=== PATIENT | male | born 1955 | race Caucasian/White ===

== ENCOUNTER 2019-01-13 09:47 | Inpatient (IN) ==
[2019-01-13] MEDS ORDERED: VANCOMYCIN 1 GM/NS 1 GM/250 ML IVPB IV ONE (10:11)
[2019-01-13] MEDS ORDERED: CLINDAMYCIN 900 MG/NS 900 MG/50 ML IVPB IV ONE (10:11)
[2019-01-13] MEDS ORDERED: CLINDAMYCIN 900 MG/D5W 900 MG/50 ML IVPB IV ONE (11:00)
[2019-01-13] MEDS ORDERED: ATIVAN IM ONE (13:30)
[2019-01-13 15:18] LABS: BASO# 0.04 X1000 (0.0-0.2); BASO% 0.3 % (0.0-0.8); EOS# 0.79 X1000 (0.0-0.7); EOS% 5.5 % (0.0-10.0); HEMATOCRIT 36.3 % (42.0-52.0); IMM GRAN# 0.09 X1000 (0.0-0.04); IMM GRAN% 0.6 % (0.0-0.5); LYMPH% 5.5 % (20.5-51.1); MCHC 35.8 g/dL (33-37); MCV 89.4 FL (81-99); MONO# 0.99 X1000 (0.11-0.59); MONO% 6.9 % (1.7-9.3); MPV 8.2 FL (7.4-10.4); NEUT# 11.74 X1000 (1.4-6.5); NEUT% 81.2 % (42.2-75.2); PLT 434 X1000 (130-400); RBC 4.06 XMIL (4.7-6.1); RDW 13.7 % (11.5-14.5); WBC 14.45 X1000 (4.8-10.8)
[2019-01-13 15:29] LABS: PROTIME 13.3 Seconds (11.0-16.0)
[2019-01-13 15:46] LABS: AGAP 13; ALBUMIN 3.2 g/dL (3.5-5.0); ALKALINE PHOSPHATASE 133 U/L (32-122); BUN 11 mg/dL (8-22); CALCIUM 8.6 mg/dL (8.8-10.2); CHLORIDE 93 mmol/L (98-107); CK PROFILE 27 U/L (24-204); COSMO 265; CREATININE 0.5 mg/dL (0.7-1.2); ESTIMATED GFR > 60; GLUCOSE 112 mg/dL (70-104); GOT 12 U/L (10-34); GPT 20 U/L (10-44); POTASSIUM 3.3 mmol/L (3.5-5.1); SODIUM 132 mmol/L (136-145); TCO2 26 mmol/L (25-35); TOTAL BILIRUBIN 0.23 mg/dL (0.20-1.00); TOTAL PROTEIN 6.4 g/dL (6.3-8.3)
--- NOTE | 2019-01-13 15:55 | PROVIDER DOCUMENTATION ---
This chart was entered by Sonia Mendoza Scribe, acting as scribe for Annalise Whitaker MD. HPI-Rash/Wound/ReCheck - General Stated Complaint: LEFT TESTICULAR ABSCESS Time Seen by Provider: 01/13/19 09:55 Source: patient, family (daughter) Allergies/Adverse Reactions: Allergies Allergy/AdvReac Type Severity Reaction Status Date / Time codeine AdvReac ITCHING Verified 02/15/18 16:38 ibuprofen [From Motrin] AdvReac ITCHING Verified 02/15/18 16:38 Home Medications: Home Medication List Medication Instructions Recorded Confirmed Last Taken Type Amlodipine Besylate [Norvasc] 10 mg PO QAM 01/13/19 01/13/19 01/13/19 History 10 Diazepam [Valium] 5 mg PO 4XDAY 01/13/19 01/13/19 01/13/19 History 5 Docusate Sodium [Colace] 100 mg PO BID 01/13/19 01/13/19 01/13/19 History 100 - History of Present Illness-Dermatology Nature of Presenting Problem: 63 yowm presents to the ed with c/o abscess on posterior left testicle with packing in place and stage 3 pressure ulcer sacrum region. pt [facility] health nurse sent him to ed via ems . pt is a paraplegic for many years and is bed bound. pt on exam is nontoxic in appearance and is aggravated with any medical treatment and daughter at bedside Location: reports: genitalia, other (sacrum) Quality: reports: painful Severity: reports: moderate Onset/Duration: reports: gradual (worsen) Timing: reports: constant, getting worse Context/Associated Symptoms: reports: abscess, tender area, other (presszure ulcer) Identifiable cause?: Yes Locality of Occurance: Home Similar Symptoms Previously?: Yes (chronic) Recently seen or treated by another doctor?: Yes (sees home health and wound care) Review of Systems - Adult - REVIEW OF SYSTEMS - ADULT Constitutional: denies: chills, fever Eyes: reports: no symptoms reported Ears, Nose, Mouth & Throat: reports: no symptoms reported Cardiovascular: denies: chest pain, palpitations Respiratory: denies: cough, shortness of breath, wheezing Gastrointestinal: reports: no symptoms reported Genitourinary: reports: no symptoms reported Musculoskeletal: reports: no symptoms reported Integumentary: reports: see HPI, skin sores/ulcer Neurological: denies: dizziness/vertigo, headache/migraines Psychiatric: reports: no symptoms reported Endocrine: reports: no symptoms reported Hematologic/Lymphatic: reports: no symptoms reported Allergic/Immunologic: reports: no symptoms reported All Other Systems: Reviewed and Negative Past History - Adult - PAST MEDICAL HISTORY-ADULT Review of Records: reports: Old Records Reviewed, Nursing Assessment Review, Medications Reviewed, Social history reviewed & non-contributory. Major Childhood Illnesses: reports: denies history Cardiovascular: reports: HTN Respiratory: reports: denies history Gastrointestinal: reports: denies history Genitourinary: reports: chronic UTI's, other (jimenez cath) Musculoskeletal: reports: other (paralysis lower extremities) Neurological: reports: denies history Psychiatric: reports: denies history Endocrine/Immune: reports: denies history Other Conditions: reports: denies history - PRIOR SURGERIES/PROCEDURES Surgical/Procedure History: reports: tonsillectomy, bowel surgery, orthopedic (extremity), back/neck (paraplegic) - IMMUNIZATION STATUS Childhood Immunizations: See Nurse Assessment Flu Vaccine: See Nurse Assessment - FAMILY HISTORY Family History: reviewed, not pertinent - SOCIAL HISTORY Smoking: quit greater than 1 year Substance Use: none presently/history of abuse (sts stopped etoh last week) Alcohol Use Frequency: sober (former use) Living Situation: family (daughter) Physical Exam-General - PHYSICAL EXAM-ADULT Initial Vital Signs Reviewed: Yes - CONSTITUTIONAL General Appearance: appears well, alert, no apparent distress - EYES Eyes: PERRL/EOMI, pink conjunctivae - HEAD, EARS, NOSE, MOUTH & THROAT HENMT: moist mucous membranes - NECK Neck: non-tender, full range of motion, supple, normal inspection - RESPIRATORY Respiratory: chest non-tender, lungs clear, normal breath sounds - CARDIOVASCULAR Cardiovascular: normal peripheral pulses, regular rate, rhythm - GASTROINTESTINAL (ABDOMEN) Abdominal Exam: normal bowel sounds, non tender, soft, other (colostomy in LLQ) - GENITOURINARY Male Genitalia: circumcised, scrotal swelling, other (scrotum abscess with induration, thickening skin of the scrotum) Rectal Exam: deferred Hemoccult Exam: deferred - MUSCULOSKELETAL Back Exam: other (chronic paralyzed lower extremities, no sensation in the lower extremity) Extremity: other (paraplegic). negative: normal range of motion, normal gait - SKIN Integumentary: normal color, normal turgor, warm/dry - NEUROLOGIC Neurologic: other (pt at baseline) - PSYCHIATRIC Psych/Mental Status: normal mood/affect, normal thought content, normal thought process, oriented x 3 Progress - PLAN OF CARE/RESULTS Progress/Plan/Lab Results: Vital Signs - 8 hr 01/13/19 12:15 01/13/19 14:16 Blood Pressure 166/85 O2 Sat by Pulse Oximetry 97 97 Laboratory Results - last 24 hr 01/13/19 01/13/19 01/13/19 15:00 15:00 15:00 WBC 14.45 H RBC 4.06 L Hgb 13.0 L Hct 36.3 L MCV 89.4 MCH 32.0 H MCHC 35.8 RDW Std Deviation 13.7 Plt Count 434 H MPV 8.2 Immature Gran % (Auto) 0.6 H Neut % (Auto) 81.2 H Lymph % (Auto) 5.5 L [place] % (Auto) 6.9 Eos % (Auto) 5.5 Baso % (Auto) 0.3 Immature Gran # (Auto) 0.09 H Neut # (Auto) 11.74 H Lymph # (Auto) 0.80 L [place] # (Auto) 0.99 H Eos # (Auto) 0.79 H Baso # (Auto) 0.04 PT INR PTT (Actin FS) Sodium 132 L Potassium 3.3 L Chloride 93 L Carbon Dioxide 26 Anion Gap 13 BUN 11 Creatinine 0.5 L Estimated GFR/1.73 m2 > 60 BUN/Creatinine Ratio 22 Glucose 112 H Calculated Osmolality 265 Calcium 8.6 L Total Bilirubin 0.23 AST 12 ALT 20 Alkaline Phosphatase 133 H Creatine Kinase 27 Total Protein 6.4 Albumin 3.2 L Globulin 3.2 Albumin/Globulin Ratio 1.0 Plasma Lactate 1.1 Urine Source Urine Color Urine Turbidity Urine pH Ur Specific [place] Urine Protein Ur Glucose (Stick) Ur Ketones (Stick) Urine Blood Urine Nitrite Urine Bilirubin Urobilinogen Dipstick Urine Leukocytes Urine WBC (Auto) Urine RBC (Auto) U Epithel Cells (Auto) Urine Bacteria (Auto) Urine Crystals Small Round Cells Urine Casts Urine Yeast-like Cells 01/13/19 01/13/19 15:00 16:49 WBC RBC Hgb Hct MCV MCH MCHC RDW Std Deviation Plt Count MPV Immature Gran % (Auto) Neut % (Auto) Lymph % (Auto) [place] % (Auto) Eos % (Auto) Baso % (Auto) Immature Gran # (Auto) Neut # (Auto) Lymph # (Auto) [place] # (Auto) Eos # (Auto) Baso # (Auto) PT 13.3 INR 1.00 PTT (Actin FS) 28.0 Sodium Potassium Chloride Carbon Dioxide Anion Gap BUN Creatinine Estimated GFR/1.73 m2 BUN/Creatinine Ratio Glucose Calculated Osmolality Calcium Total Bilirubin AST ALT Alkaline Phosphatase Creatine Kinase Total Protein Albumin Globulin Albumin/Globulin Ratio Plasma Lactate Urine Source CATH Urine Color YELLOW Urine Turbidity HAZY Urine pH 6.5 Ur Specific [place] 1.014 Urine Protein TRACE A Ur Glucose (Stick) NEGATIVE Ur Ketones (Stick) 40 A Urine Blood NEGATIVE Urine Nitrite POSITIVE A Urine Bilirubin NEGATIVE Urobilinogen Dipstick NORMAL Urine Leukocytes LARGE A Urine WBC (Auto) TNTC A Urine RBC (Auto) <10 U Epithel Cells (Auto) <10 Urine Bacteria (Auto) 4+ Urine Crystals NONE SEEN Small Round Cells NONE SEEN Urine Casts Not Reportable Urine Yeast-like Cells Not Reportable Orders Category Date Time [facility] Routine AdmDCTranf 01/13/19 17:23 Active Activity - Strict Bedrest ORDERED Care 01/13/19 17:23 Active IV Insertion ORDERED Care 01/13/19 11:37 Active Intake and Output-Strict ORDERED Care 01/13/19 17:23 Active Nursing- MD Consult Request ROUTINE Care 01/13/19 17:23 Active Update & Confirm Home Medicati ROUTINE Care 01/13/19 17:23 Active Vital Signs Order Q 4-HR ASSESS Care 01/13/19 17:23 Active Wound Care DIRECTED Care 01/13/19 17:23 Active Z-Document. for Tele Applied ORDERED Care 01/13/19 17:23 Completed MD [Physician/Provider Consults] Routine Cons 01/13/19 17:23 Ordered Physician/Provider Consults Routine Cons 01/13/19 17:23 Ordered Heart Healthy Diet Diet 01/13/19 17:24 Active BASIC METABOLIC PANEL [CHEM] Routine Lab 01/14/19 06:00 Ordered BLOOD CULTURE [BLDCUL] Stat Lab 01/13/19 10:18 Results CBC WITH DIFF [HEME] Routine Lab 01/14/19 06:00 Ordered CBC WITH DIFF [HEME] Stat Lab 01/13/19 15:00 Completed CK PROFILE [SP CHEM] Stat Lab 01/13/19 15:00 Completed COMPREHENSIVE METABOLIC PANEL [CHEM] Stat Lab 01/13/19 15:00 Completed LACTATE, PLASMA [CHEM] Lab 01/13/19 14:45 Uncollected LACTATE, PLASMA [CHEM] Lab 01/13/19 15:00 Completed LACTATE, PLASMA [CHEM] Lab 01/13/19 17:45 Uncollected PROTIME WITH INR [COAG] Stat Lab 01/13/19 15:00 Completed PTT [COAG] Stat Lab 01/13/19 15:00 Completed URINALYSIS W/POSS RFLX CULT [URINALYSIS] Stat Lab 01/13/19 16:49 Completed Acetaminophen [Tylenol] Med 01/13/19 17:23 Active 650 mg PO Q6H PRN PRN Clindamycin 900 mg/D5w Med 01/13/19 11:00 Discontinued 900 mg in 50 ml IV NOW Clindamycin 900 mg/Ns Med 01/13/19 10:11 Stop Req 900 mg in 50 ml IV NOW Enoxaparin [Lovenox] Med 01/13/19 17:23 Active 40 mg SUBQ Q24H Lorazepam [Ativan] Med 01/13/19 13:30 Discontinued 1 mg IM NOW ONE Ondansetron [Zofran] Med 01/13/19 17:23 Active 4 mg IV Q4H PRN PRN Pharmacy Order [Vancomycin IV Per Pharmacy] Med 01/13/19 17:23 Active 1 each MISC DIRECTED Piperacillin/Tazobactam [Zosyn] 3.375 gm Med 01/13/19 17:23 Active 0.9% Sodium Chloride Inj [Ns] 50 ml IV Q6H Vancomycin 1 gm/Ns Med 01/13/19 10:11 Discontinued 1 gm in 250 ml IV NOW Telemetry [OM.EQ] Routine Oth 01/13/19 17:23 Active Transfer/Admit Order [TRANSFER] Routine Transfer 01/13/19 16:07 Completed Result Diagrams: 01/13/19 15:00 01/13/19 15:00 - REASSESSMENT Reassessment #1 Time Reassessed: 12:36 (pt is eating in no distress) Status: unchanged Reassessment #2 Time Reassessed: 16:11 (pt is resting in bed in no distress) Status: unchanged - CONSULTS/PCP/HOSPITALIST Notification #1 *Consult/PCP/Hospitalist*: urology dr urias Reason/Comments: phone consult Departure - Departure Date of Disposition Decision: 01/13/19 Time of Disposition Decision: 15:53 DIAGNOSIS: Scrotal abscess Decubitus ulcer Qualifiers: Pressure injury location: buttock Pressure injury stage: stage 3 Laterality: unspecified laterality Qualified Code(s): L89.303 - Pressure ulcer of unspecified buttock, stage 3 Disposition: ADMITTED INPATIENT 09 Certified Medical Emergency: Emergent Condition: Good - Critical Care Note This patient required my direct & personal management of CC.: No Attestation - Physician/ JONE Attestation Patient care was provided by Advanced Practice Provider:: No The physician spent face to face time with patient:: Yes Advanced Practice Provider documentation review:: Supervising physician onsite and consulted in the evaluation and care of this patient. The physician did have a face to face encounter with the patient. This chart was documented by the indicated scribe, (Sonia Mendoza Scribe) and accurately reflects the services I performed and decisions made by me, Annalise Whitaker MD, as attested by the provider's signature.
[2019-01-13 17:03] LABS: URINE SOURCE CATH
[2019-01-13 17:15] LABS: BILIRUBIN URINE NEGATIVE (NEGATIVE); BLOOD URINE NEGATIVE (NEGATIVE); COLOR YELLOW; GLUCOSE URINE NEGATIVE (NEGATIVE); KETONE URINE 40 mg/dL (NEGATIVE); LEUKOCYTES URINE LARGE (NEGATIVE); NITRITE URINE POSITIVE (NEGATIVE); PH URINE 6.5; PROTEIN URINE TRACE mg/dL (NEGATIVE); SP GRAVITY URINE 1.014; TURBIDITY URINE HAZY (CLEAR); UROBILINOGEN URINE NORMAL (NORMAL)
[2019-01-13 17:20] LABS: UR EPITHELIAL CELLS <10 /HPF (<10); URINE BACTERIA 4+ /HPF; URINE RBC <10 /HPF (<10); URINE WBC TNTC /HPF (<10)
[2019-01-13] MEDS ORDERED: VANCOMYCIN IV PER PHARMACY MISC SCH (17:23)
[2019-01-13] MEDS ORDERED: TYLENOL PO PRN (17:23)
[2019-01-13] MEDS ORDERED: ZOFRAN IV PRN (17:23)
[2019-01-13 17:28] LABS: URINE CRYSTALS NONE SEEN; URINE SMALL ROUND CELLS NONE SEEN
[2019-01-13] MEDS ORDERED: VANCOMYCIN 1,000 MG in NS 250 ML IV ONE (18:30)
--- NOTE | 2019-01-13 20:03 | HISTORY AND PHYSICAL ---
PRIMARY CARE PHYSICIAN: Listed as none. CHIEF COMPLAINT: Abscess on the posterior left testicle with packing in place and a stage III pressure ulcer to the sacrum region, sent by home health. HISTORY OF PRESENTING ILLNESS: This is a 63-year-old male who presents to [facility] via EMS, sent by his home health nurse for an abscess to his posterior left testicle that has packing in place and a stage III ulcer to his sacrum region. He is paraplegic from a fall from a roof in 1989 and has been bed bound since that time. 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 Today, he had a white count of 14.45. Sodium was 132 and potassium 3.3, so he will be admitted to the surgical unit with consultations from Surgery and Urology for further evaluation and treatment. PAST MEDICAL HISTORY: Paraplegia from a fall from a roof in 1989, hypertension, hyperlipidemia, chronic stage III sacral decubiti, and a known left scrotal abscess with current packing. PAST SURGICAL HISTORY: Rods implanted in both tibias and the left femur, back and neck surgery, kidney stone removal and tonsillectomy. FAMILY HISTORY: Noted for heart disease. No diabetes. SOCIAL HISTORY: Currently lives alone and has home health and checked on by family. Smokes 1 pack of cigarettes a day. Denies any alcohol or illicit drug use. ALLERGIES: Codeine and ibuprofen. HOME MEDICATIONS: A current list will need to be obtained, reconciled, reviewed and restarted as appropriate. Will place an order for nursing to update and confirm home medications. LABORATORY DATA: Showed a white blood cell count of 14.45, hemoglobin 13, hematocrit 36.3, platelets 434. PT and INR of 13.3 and 1. Sodium 132, potassium 3.3, chloride 93, CO2 26, BUN 11, creatinine 0.5 ,glucose 112, plasma lactate of 1.1. REVIEW OF SYSTEMS: He denies any fever, chills, blurred vision, dizziness, chest pain, coughing, shortness of breath. Denies any abdominal pain, constipation, diarrhea, burning or hurting with urination. He is noted to have an indwelling Mike catheter in place from home with a lot of sediment noted in the tubing. PHYSICAL EXAMINATION: VITAL SIGNS: On arrival, he had a temperature of 98.3 degrees, pulse 96, respirations 18, blood pressure 151/92, saturating 99% on room air. GENERAL: This is a 63-year-old male who is lying in the bed. Answers questions appropriately. HEENT: Normocephalic, atraumatic. Normal ENT inspection. Oropharynx and nares are clear. Eyes: Pupils are equal, round, and reactive to light and accommodation. Extraocular movements are intact. NECK: Normal inspection, normal range of motion. LUNGS: Clear to auscultation bilaterally with equal lung expansion and chest wall movement. HEART: With regular rate and rhythm. No murmurs, rubs, or gallops. ABDOMEN: Soft, nontender, nondistended. He is noted to have a colostomy in his left lower quadrant. GENITOURINARY: He is noted to have scrotal swelling and testicular tenderness and an abscess noted on the left testicle. There is some packing to an open area noted to the posterior side of his left testicle. He has an indwelling Mike catheter with sediment noted in tubing. He also is noted to have a stage III sacral decubitus with dressing intact. MUSCULOSKELETAL: He has paraplegia. NEUROLOGICAL: Cranial nerves II-XII are at baseline for this patient. He is alert and oriented x3 and answers questions appropriately. ASSESSMENT: 1. A left scrotal abscess. 2. Stage III sacral decubitus that is chronic. 3. Leukocytosis. 4. Hyponatremia. 5. Hypokalemia. 6. Paraplegia, status post a fall in 1989. 7. Hypertension, history of. PLAN: He will be admitted to the surgical unit and placed on telemetry. We will consult Wound Care. We will consult General Surgery. We will consult Urology. We will update and confirm home medications. Place on a healthy heart diet. Placed on Zosyn 3.375 grams IV every 6 hours, vancomycin per pharmacy protocol. Lovenox 40 mg subcutaneous every 24 hours for DVT prophylaxis. Recheck CBC and BMP in the a.m., and further orders after being seen by attending and sap plant maintenance consultant. Dictated by AJAY Harvey for Hima Gilbert MD cc: AJAY Harvey MD
--- NOTE | 2019-01-13 20:38 | CONSULTATION ---
DATE OF CONSULTATION: 01/13/2019 REQUESTING PHYSICIAN: Hospitalist service. REASON FOR CONSULTATION: For scrotal abscess. HISTORY OF PRESENT ILLNESS: A 63-year-old male with paraplegia secondary to a traumatic fall. He reports a two-month history of left scrotal and perineal swelling. He has a colostomy which was done to divert his GI tract secondary to a nonhealing sacral decubitus ulcer. The report is that a home health nurse had assessed and reportedly helped drain the perineal fluid collection. Per patient, it was foul and white in appearance. He reported that recently he did better, but then the perineal swelling returned. He denies associated scrotal swelling. He presented to the emergency room on 01/13/2019 with tenderness and drainage of his perineal area, as well as concern about the sacral ulcer. He denies fevers or chills. He has an indwelling Mike catheter and denies blood in the Mike bag. He has had UTIs in the past but none recently. PAST MEDICAL HISTORY: Paraplegia, hypertension, hyperlipidemia. PAST SURGICAL HISTORY: Left femur ORIF, bilateral tibial ORIF. Back surgery, neck surgery, endoscopic stone removal, tonsillectomy and diverting colostomy. ALLERGIES: Codeine and ibuprofen. FAMILY HISTORY: Positive for coronary disease, negative for malignancies. HOME MEDICATIONS: Amlodipine, hydrochlorothiazide. SOCIAL HISTORY: Smokes. Denies alcohol or illicit drug use. REVIEW OF SYSTEMS: Reviewed, and 12 systems negative with exception of the HPI. PHYSICAL EXAMINATION: Vital Signs: T 98.3, P 95, BP 149/85 General: No acute distress. HEENT: Normocephalic, atraumatic. Cardiovascular: Regular rate and rhythm. Pulmonary: Bilateral breath sounds. Abdomen: Scaphoid, nontender to palpation. Colostomy is in the left abdominal quadrant. Normal bowel sounds. No hepatosplenomegaly noted. : Unremarkable penile shaft. Patent urethral meatus with Mike catheter in place. Testes descended bilaterally. Somewhat atrophic, no masses noted. There is no evidence of scrotal abscess. His perineum has a 1 cm opening right in the midline with what appears to be Iodoform packing in place. There is an area of induration and erythema to the posterior perineum. There is no physical evidence of scrotal involvement. There is no crepitus noted. Digital Rectal Examination: Deferred at this time. Back: No CVA tenderness. No groin lymphadenopathy. No cervical lymphadenopathy. Neurologic: Alert and x3. Psychiatric: Appropriate mood and affect. PERTINENT IMAGES: None. ASSESSMENT: A 63-year-old male with paraplegia and decubitus ulcer who appears to have a perineal abscess that was drained versus spontaneously draining, and was packed by home health nurse. The patient then has not made progress as expected and was sent to the emergency room. I have discussed with the patient that he does not have penile or scrotal involvement, and given his sacral decubitus ulcer and posterior perineal induration, I would defer to General Surgery colleagues as to how they want to proceed with that. I recommended the patient obtain a CT scan of his pelvis to appreciate the extent of inflammation and infection if there is such. PLAN: 1. Keep Mike catheter to gravity drainage. 2. CT pelvis with IV contrast tomorrow to further evaluate the extent of perineal abscess. 3. No urologic intervention needed emergently. Thank you for this consultation. cc: Tim Watt MD
[2019-01-13] MEDS: VALIUM PO SCH (20:44)
[2019-01-13] MEDS: COLACE PO SCH (20:44)
[2019-01-13] MEDS: CLINDAMYCIN 600 MG/D5W 600 MG/50 ML IVPB IV SCH (20:44)
--- NOTE | 2019-01-13 20:49 | HISTORY AND PHYSICAL ---
ADDENDUM: Patient seen and examined by me [id number]. All the laboratory, vital signs and images were reviewed. Patient presented with sepsis. White blood cell count is elevated and heart rate at this moment is 108 and we do have a source of infection, he presented to the emergency department with an abscess on the posterior left testicle with packing in place and stage III pressure ulcer in the sacral area, he is paraplegic for many years and is basically bed bound, he fell from a roof long time ago. He has been hospitalized before the last time he was discharged on February 2018 due to Cecy gangrene, osteomyelitis of the ischial bones, decubitus ulcer, hypertension, hyponatremia, diarrhea secondary to antibiotics and streptococcal bacteremia. He had surgery before with Dr. 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 I have placed this patient on broad-spectrum antibiotics. I will add clindamycin to his medications. I agree with the rest of the nurse practitioner's assessment and plan. cc: Hima Gilbert MD
[2019-01-13] MEDS: ZOSYN 3.375 GM in NS 50 ML IV SCH (21:35)
[2019-01-13] MEDS: LOVENOX SUBQ SCH (22:55)
[2019-01-14] MEDS: ZOSYN 3.375 GM in NS 50 ML IV SCH ×4 (04:28→22:33)
[2019-01-14] MEDS: CLINDAMYCIN 600 MG/D5W 600 MG/50 ML IVPB IV SCH ×3 (05:03→20:29)
[2019-01-14 07:14] LABS: BASO# 0.05 X1000 (0.0-0.2); BASO% 0.5 % (0.0-0.8); EOS# 0.86 X1000 (0.0-0.7); HEMATOCRIT 35.6 % (42.0-52.0); HEMOGLOBIN 12.7 g/dL (14.0-18.0); IMM GRAN# 0.09 X1000 (0.0-0.04); IMM GRAN% 0.8 % (0.0-0.5); LYMPH# 0.95 X1000 (1.2-3.4); LYMPH% 8.8 % (20.5-51.1); MCHC 35.7 g/dL (33-37); MCV 89.7 FL (81-99); MONO# 0.91 X1000 (0.11-0.59); MONO% 8.4 % (1.7-9.3); MPV 8.3 FL (7.4-10.4); NEUT# 7.94 X1000 (1.4-6.5); NEUT% 73.5 % (42.2-75.2); PLT 441 X1000 (130-400); RBC 3.97 XMIL (4.7-6.1); RDW 13.6 % (11.5-14.5)
[2019-01-14 07:41] LABS: AGAP 11; BUN 7 mg/dL (8-22); CHLORIDE 96 mmol/L (98-107); COSMO 261; CREATININE 0.4 mg/dL (0.7-1.2); ESTIMATED GFR > 60; GLUCOSE 100 mg/dL (70-104); POTASSIUM 3.2 mmol/L (3.5-5.1); SODIUM 131 mmol/L (136-145); TCO2 24 mmol/L (25-35)
--- NOTE | 2019-01-14 09:00 | Diag Imaging Result Doc PS360 ---
EXAM: CT PELVIS W/CONTRAST HISTORY: perineal abscess TECHNIQUE: CT pelvis with intravenous contrast COMPARISON: 02/15/2018 FINDINGS: There is a left anterior pelvic wall ostomy. The bowel loops are not dilated. Severe atherosclerosis. No aortic aneurysm. No ascites. There is a Mike catheter in the urinary bladder. The wall of urinary bladder is thickened. Normal appendix. There is a left buttocks ulcer extending to the iliac bone. There is sclerosis to the adjacent bone. No well-defined fluid collection. No distinct abscess. There is also skin thickening and subcutaneous air in the posterior scrotum although subcutaneous fluid is present, there is no well-defined fluid collection. However, all of the air is contained within a small collection measuring approximately 1 x 2 x 4 cm. This connects with the skin surface. There are small bilateral hydroceles. Prior surgery to the left hip. No acute fracture or dislocation. IMPRESSION: 1.Subcutaneous posterior scrotal abscess connecting with the skin surface 2.Left buttocks soft tissue ulcer with adjacent iliac bone sclerosis which may represent osteomyelitis This exam was performed using automated exposure control, adjustment of mA or kV according to patient size, and/or use of iterative reconstruction technique. Electronically signed by Brennan Eaton 01/14/2019 8:58 AM
[2019-01-14] MEDS: COLACE PO SCH ×2 (10:55→20:29)
[2019-01-14] MEDS: NORVASC PO SCH (10:55)
[2019-01-14] MEDS: VALIUM PO SCH ×4 (10:55→20:29)
[2019-01-14] MEDS ORDERED: KLOR-CON PO ONE (12:10)
--- NOTE | 2019-01-14 12:17 | GENERAL SURGERY CONSULTATION ---
DATE: 01/14/2019 REASON FOR CONSULTATION: Sacral decubitus ulcer. HISTORY OF PRESENT ILLNESS: This is a 63-year-old male known to Dr. Irby for previous necrotizing wound of the left ischium. He underwent extensive debridement followed by a wound VAC placement and has been followed by Dr. Irby, although it has been quite some time since he has seen Dr. Irby. His home health nurse has been caring for his wounds. In the interim, he developed purulent drainage from an opening on the left side of his posterior scrotum. It has been packed with strip gauze for several months. He was sent to the emergency room for further evaluation of this area. He denies exacerbating or relieving factors. No fever or chills. PAST MEDICAL HISTORY: Paraplegia, hypertension, hyperlipidemia, chronic stage III ischial decubitus ulcer. PAST SURGICAL HISTORY: Debridement of left ischium, lumbar and cervical spine surgery, kidney stone removal, tonsillectomy. FAMILY HISTORY: Reviewed and noncontributory. HOME MEDICATIONS: Norvasc, Colace, Valium. ALLERGIES: Codeine and ibuprofen. SOCIAL HISTORY: He lives alone. He has home health. He smokes 1 pack of cigarettes per day. No alcohol or illicit drug use. REVIEW OF SYSTEMS: Ten systems reviewed and negative except as noted above. PHYSICAL EXAMINATION: Vital Signs: Temperature 98.3 degrees, pulse 96, respirations 18, blood pressure 151/92, O2 saturation 99%. General: Well-developed, well-nourished male in no distress, who looks stated age. HEENT: Normocephalic, atraumatic. Extraocular muscles intact. Pupils equal, round, reactive to light. Sclerae anicteric. Moist mucous membranes. Neck: Supple. No thyromegaly. CV: Regular rate and rhythm. Respiratory: Bilateral breath sounds. No work of breathing. GI: Soft, nontender, nondistended. He has a left lower quadrant colostomy. No organomegaly or mass. Extremities: He is a paraplegic. He moves his arms well. Skin: The left ischial wound is stage III. It is clean. There is no necrotic tissue. There is no foul odor. There are no sinus tracts. There is no exposed bone. He does have an open wound on the posterior left scrotum that tracks more into the scrotum than towards the ischium or anus. There is some cloudy drainage and surrounding cellulitis. No crepitus. LABORATORY: White blood cell count 14,000 on admission, 10.8 today. Electrolytes reviewed and notable for sodium 131, potassium 3.2, BUN 7, creatinine 0.4. IMAGING: A pelvic CT scan shows subcutaneous posterior scrotal abscess and a left ischial ulcer. ASSESSMENT AND PLAN: A 63-year-old male with stage III chronic left ischial pressure ulcer. It is stable and clean and does not require any acute surgical intervention. He has an apparent superficial abscess of the left scrotum. We will consult Urology again for further evaluation and treatment of this area. cc: Titus Diamond MD
--- NOTE | 2019-01-14 12:29 | PROGRESS NOTE ---
DATE: 01/14/2019 SUBJECTIVE: The patient seems to be stable. Surgery Department evaluated this patient, and they will talk to Urology Department. He does have a lesion in the scrotal area, an abscess, and probably he needs to get an I and D in that area. His sacral area looks good. The wound looks good. No signs of infection at this moment. He has been placed on broad-spectrum antibiotics. OBJECTIVE: Vital Signs: Temperature 97.4 degrees, pulse 73, respiratory rate 20, blood pressure 124/58, and oxygen saturation 100% on room air. HEENT: Head normocephalic. No trauma. PERRLA. Neck: Supple. No JVD. No masses. Central trachea. Chest: Clear to auscultation. No wheezing. No rales. Abdomen: Soft, nontender, and nondistended. He has a colostomy in the left lower quadrant. Genitourinary: He has scrotal swelling with signs of infection. He is warm to palpation, signs of infection, and it has a little hole that does not communicate with the sacral area. He has indwelling Mike catheter with sediment noted in tubing. He has also a sacral decubitus ulcer. The dressing has been removed, and seems to be stable with no signs of infection. Musculoskeletal: This patient is paraplegic. Decreased muscle mass. Neurological: This patient is alert. He is oriented x3. He is able to move his upper extremities. He has paraplegia, and has been that way for a very long time, and decreased muscle mass. LABORATORY: WBC 10.8, hemoglobin 12.7, hematocrit 35.6, and platelets 441,000. Sodium 131, potassium 3.2, chloride 96, bicarbonate 24, BUN 7, creatinine 0.4, glucose 100, and calcium 8. ASSESSMENT AND PLAN: 1. Left scrotal abscess. He does have signs of infection. The scrotum is not communicating with the sacral area. Sacral area looks stable/good. I do not see any secretion in that decubitus ulcer, which is chronic. 2. Hyponatremia. This patient is still slightly hyponatremic. We will continue to monitor for now. 3. Hypokalemia, I will replace the potassium. 4. Hypertension. Continue with home medications. 5. Paraplegia, status post fall in 1989. 6. Stage III sacral decubitus ulcer that is chronic with no signs of infection. 7. The plan is to ask Urology Department to evaluate this patient. Probably, he will need an I and D. Surgery Department is on board also. cc: Hima Gilbert MD
[2019-01-14] MEDS: VANCOMYCIN 1,650 MG in NS 250 ML IV SCH (13:04)
--- NOTE | 2019-01-14 15:52 | PROGRESS NOTE ---
DATE: 01/14/2019 SUBJECTIVE: Mr. Hilliard reports he is feeling about the same. He denies fevers, chills, or discomfort in his genitourinary area since he does not have sensation there. He was evaluated by General Surgery, and Dr. Diamond contacted me personally, reportedly without General Surgery having any plans for intervention. I ordered pelvis CT this morning which showed subcutaneous anterior perineal and posterior scrotal abscess that already has communication with the skin opening which has been packed with iodoform gauze. OBJECTIVE: Vital signs: Temperature 97.4 degrees, pulse 70, BP 124/58, urine output was recorded in the amount of 1200 mL. General: No acute distress. Abdomen: Nontender, nondistended. : Mike catheter in place. His penile shaft and scrotum have no evidence of fluctuance or crepitus. He has some induration in the area of the posterior scrotum and midline perineum with approximately 1 cm opening which is packed with iodoform gauze at the level of mid perineum. He has a dressing over his sacral decubitus ulcer. PERTINENT LABORATORY DATA: White cell count is 11,000, creatinine is 0.4. DESCRIPTION OF PROCEDURE: I have discussed with the patient that he would benefit from incision and drainage of the scrotal abscess given the CT scan findings and likely inadequate drainage with a small iodoform gauze. Informed consent was obtained. He was placed in lateral decubitus position. I prepped his skin and perineum with Betadine in a sterile fashion. An 11-blade was used to make approximately 2.5 cm incision in his midline perineum. Surgeon's finger was then used to break up loculations in the perineum and the inferior scrotum. I did not appreciate any extension into the inguinal region. I did not appreciate any extension toward the rectum. There was no evidence of significant bleeding. His wound was packed with 1-inch iodoform gauze. Patient tolerated procedure well. PLAN: 1. Recommend iodoform gauze packing changes twice a day. 2. We will follow. cc: Tim Watt MD
[2019-01-14] MEDS: LOVENOX SUBQ SCH (20:29)
[2019-01-15] MEDS: ZOSYN 3.375 GM in NS 50 ML IV SCH ×3 (03:33→20:33)
[2019-01-15] MEDS: CLINDAMYCIN 600 MG/D5W 600 MG/50 ML IVPB IV SCH ×3 (04:25→21:25)
[2019-01-15] MEDS: VANCOMYCIN 1,650 MG in NS 250 ML IV SCH ×2 (06:18→23:41)
[2019-01-15 06:42] LABS: BASO# 0.03 X1000 (0.0-0.2); BASO% 0.3 % (0.0-0.8); EOS# 0.87 X1000 (0.0-0.7); EOS% 7.3 % (0.0-10.0); HEMATOCRIT 39.1 % (42.0-52.0); HEMOGLOBIN 13.6 g/dL (14.0-18.0); IMM GRAN# 0.19 X1000 (0.0-0.04); IMM GRAN% 1.6 % (0.0-0.5); LYMPH# 0.96 X1000 (1.2-3.4); MCH 31.1 PG (27-31); MCHC 34.8 g/dL (33-37); MCV 89.5 FL (81-99); MONO# 0.59 X1000 (0.11-0.59); MONO% 4.9 % (1.7-9.3); MPV 8.3 FL (7.4-10.4); NEUT# 9.32 X1000 (1.4-6.5); NEUT% 77.9 % (42.2-75.2); PLT 519 X1000 (130-400); RBC 4.37 XMIL (4.7-6.1); RDW 14.1 % (11.5-14.5); WBC 11.96 X1000 (4.8-10.8)
[2019-01-15 06:58] LABS: AGAP 10; BUN 11 mg/dL (8-22); CALCIUM 8.4 mg/dL (8.8-10.2); CHLORIDE 95 mmol/L (98-107); COSMO 260; CREATININE 0.6 mg/dL (0.7-1.2); ESTIMATED GFR > 60; GLUCOSE 99 mg/dL (70-104); POTASSIUM 4.5 mmol/L (3.5-5.1); SODIUM 130 mmol/L (136-145); TCO2 25 mmol/L (25-35)
[2019-01-15] MEDS: NORVASC PO SCH (08:25)
[2019-01-15] MEDS: COLACE PO SCH ×2 (08:25→20:33)
[2019-01-15] MEDS: VALIUM PO SCH ×4 (08:25→20:33)
--- NOTE | 2019-01-15 09:24 | PROGRESS NOTE ---
DATE: 01/15/2019 SUBJECTIVE: No acute events overnight. Dr. Watt yesterday did an incision and drainage of an abscess located in the scrotal area, and then it has been packed with 1 inch of iodoform gauze. It looks like the patient tolerated well the procedure. Will continue to monitor. Urine culture showed Klebsiella pneumonia, ESBL negative. He is on Zosyn, clindamycin, and vancomycin. I will continue with the same management for now since he has been getting better, but probably we need to think about asking Infectious Disease Department to evaluate this patient in the future. OBJECTIVE: Vital Signs: Temperature 97.8 degrees, pulse 86, respiratory rate 16, blood pressure 139/77, oxygen saturation 100% on room air. HEENT: Head normocephalic. No trauma. PERRLA. Neck: Supple. No JVD. No masses. Central trachea. Chest: Clear to auscultation. No wheezing. No rales. Abdomen: Soft, nontender, nondistended. He has a colostomy in the left lower quadrant. Genitourinary: He has scrotal swelling, but it is packed now. He also has a stage III sacral ulcer on his back, but that does not look infected. Musculoskeletal: This patient is paraplegic. Decreased muscle mass. Neurological: The patient is alert. He is oriented x3. He is able to move his upper extremities. He does have some weakness though. He has paraplegia, and that has been happening for a very long time. Decreased muscle mass. LABORATORY DATA: WBC 11.9, hemoglobin 13.6, hematocrit 39.1, platelets 519,000. Sodium 130, potassium 4.5, chloride 95, bicarbonate 25, BUN 11, creatinine 0.6, glucose 99, calcium 8.4. ASSESSMENT AND PLAN: 1. Left scrotal abscess, status post incision and drainage. Will continue following the recommendations of Urology Department. Will continue with the same management for now. 2. Hyponatremia, stable. 3. Hypokalemia, resolved. 4. Hypertension. Continue with the same management. Continue home medications. He seems to be stable. He is refusing a healthy diet. He wants a regular diet. 5. Paraplegia, status post fall in 1989. 6. Stage III sacral decubitus ulcer that is chronic with no signs of infection. Overall, this patient seems to be doing better. We will continue with the same management for now. He has been placed on vancomycin, clindamycin, and Zosyn. I do believe close to the end of this hospitalization, we need to consult Infectious Disease Department to have a plan for discharge. We need to monitor also, his kidney function. cc: Hima Gilbert MD
--- NOTE | 2019-01-15 11:50 | PROGRESS NOTE ---
DATE: 01/15/2019 SUBJECTIVE: Mr. Hilliard reports an eventful night. He denies any discomfort. OBJECTIVE: Vital Signs: Temperature 97.8 degrees, pulse 86, blood pressure 139/77. His urine output was recorded in the amount of 1200 mL. General: Acute distress. Perineum: Iodoform gauze packing in place. Persistent area of induration on the posterior scrotum, but no fluctuance noted. No crepitus appreciated. LABORATORY DATA: White cell count of 12,000. Creatinine 0.69. ASSESSMENT: A 63-year-old male who underwent bedside incision and debridement of perineal and scrotal abscess. His wound looks good. There is no evidence of progression of the abscess. I have explained to the patient that the induration could be there for a few days. He is on Zosyn and vancomycin. Of note, his urine culture from 01/13/2019 grew Klebsiella. PLAN: 1. Continue iodoform gauze wound changes once daily. The patient already has home health set up for him. 2. Recommend a 10 to 14-day course of oral antibiotics once he is ready for discharge to cover the perineal abscess. 3. Will follow while he is in the hospital. No further urologic intervention needed at this time. cc: Tim Watt MD
[2019-01-15] MEDS: LOVENOX SUBQ SCH (20:33)
[2019-01-16] MEDS: ZOSYN 3.375 GM in NS 50 ML IV SCH ×3 (03:18→16:56)
[2019-01-16] MEDS: CLINDAMYCIN 600 MG/D5W 600 MG/50 ML IVPB IV SCH ×2 (06:22→16:56)
[2019-01-16 07:01] LABS: BASO# 0.05 X1000 (0.0-0.2); BASO% 0.4 % (0.0-0.8); EOS# 1.07 X1000 (0.0-0.7); EOS% 9.5 % (0.0-10.0); HEMATOCRIT 36.3 % (42.0-52.0); HEMOGLOBIN 12.5 g/dL (14.0-18.0); IMM GRAN# 0.15 X1000 (0.0-0.04); IMM GRAN% 1.3 % (0.0-0.5); LYMPH# 1.18 X1000 (1.2-3.4); LYMPH% 10.5 % (20.5-51.1); MCHC 34.4 g/dL (33-37); MCV 90.1 FL (81-99); MONO# 0.75 X1000 (0.11-0.59); MONO% 6.7 % (1.7-9.3); NEUT# 8.06 X1000 (1.4-6.5); NEUT% 71.6 % (42.2-75.2); PLT 528 X1000 (130-400); RBC 4.03 XMIL (4.7-6.1); RDW 14.3 % (11.5-14.5); WBC 11.26 X1000 (4.8-10.8)
[2019-01-16 07:19] LABS: AGAP 11; BUN 10 mg/dL (8-22); CHLORIDE 99 mmol/L (98-107); COSMO 271; CREATININE 0.5 mg/dL (0.7-1.2); ESTIMATED GFR > 60; GLUCOSE 93 mg/dL (70-104); SODIUM 136 mmol/L (136-145); TCO2 26 mmol/L (25-35)
[2019-01-16] MEDS: VALIUM PO SCH ×3 (11:27→16:54)
[2019-01-16] MEDS: COLACE PO SCH (11:27)
[2019-01-16] MEDS: NORVASC PO SCH (11:27)
[2019-01-16] MEDS ORDERED: NS 500 ML ONE (11:45)
--- NOTE | 2019-01-16 15:48 | PROGRESS NOTE ---
DATE: 01/16/2019 SUBJECTIVE: This morning Mr. Hilliard refers to be doing well. Did not have any new complaints. OBJECTIVE: Vital signs: Blood pressure is 142/83, pulse of 81, respirations 18, temperature 98.4 degrees. General: Mr. Hilliard is a 63-year-old gentleman. He is in bed, no distress. HEENT: Mucosa is pink and moist. Anicteric. Acyanotic. Neck: Supple. Chest: Clear to auscultation. No crepitations. No rhonchi. Cardiovascular: Regular rate and rhythm. Abdomen: Soft. There is an old midline surgical scar. There is also an ostomy on the left side. Mike catheter is in place. Extremities: No pedal edema. RETIREMENT OFFICER: Patient is awake, alert, oriented. 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 : The patient has a left scrotal abscess. Wound stuffed with sterile dressing. There is also a stage 3 soft tissue pressure injury on the left ischium which looks clean. LABORATORY DATA: WBC is 11.26, hemoglobin is 12.5. Chemistry is also reviewed, completely within normal range. The patient's urine culture has grown Klebsiella pneumoniae which is sensitive to Levaquin. ASSESSMENT: 1. Left scrotal abscess. Patient is status post I D. Unfortunately, I do not see any culture from that specimen. The patient's urine culture, however, grew Klebsiella. 2. Klebsiella urinary tract infection. Presumably this is also the same pathogen causing the scrotal abscess. The patient was on broad-spectrum IV antibiotics. This has been switched to p.o. Levaquin and also to get clindamycin for other anaerobes and gram positive pathogen coverage. 3. Hypertension, controlled. 4. 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 5. Stage 3 left sacral decubitus ulcer. The patient has been evaluated by both Surgery and Wound Care. PLAN: So in general, I think Mr. Hilliard is doing well. Denies any new complaints. His lab work has all been reviewed. This seems to all be within the normal range, except the white cell count that is slightly elevated, but it is much better than admission. I have changed his current antimicrobial coverage to Levaquin and p.o. clindamycin and we hope to possibly discharge him tomorrow, pending final recommendations from the floral department specialist team. cc: Cy Sheth MD MTDD
[2019-01-16] MEDS: CLEOCIN PO SCH (16:54)
[2019-01-16] MEDS: LEVAQUIN PO SCH (16:54)
[2019-01-17] MEDS: VALIUM PO SCH ×3 (01:06→15:35)
[2019-01-17] MEDS: LOVENOX SUBQ SCH (01:06)
[2019-01-17] MEDS: COLACE PO SCH ×2 (01:06→10:32)
[2019-01-17] MEDS ORDERED: CULTURELLE PO SCH (09:00)
[2019-01-17] MEDS: CLEOCIN PO SCH ×2 (10:32→15:35)
[2019-01-17] MEDS: NORVASC PO SCH (10:32)
[2019-01-17] MEDS: LEVAQUIN PO SCH (10:33)
[2019-01-17 10:51] VITALS: BP 147/78
--- NOTE | 2019-01-18 01:14 | DISCHARGE SUMMARY ---
ADMISSION DATE: 01/13/2019 DISCHARGE DATE: 01/17/2019 DISPOSITION: Home. FOLLOW-UP: 1. Dr. Watt. 2. Dr. Diamond. 3. [facility]. CONSULTATION DURING THIS ADMISSION: 1. Surgery was consulted, patient was seen by Dr. Diamond. 2. Urology was consulted, patient was seen by Dr. Watt. INVASIVE PROCEDURES DONE DURING ADMISSION: A CT scan of the pelvis revealed subcutaneous posterior scrotal abscess connecting with the skin surface, there was a left buttock soft tissue ulcer with adjacent iliac bone erosions. INVASIVE PROCEDURES DONE DURING ADMISSION: A bedside I and D of the scrotal abscess was done by Dr. Watt. ADMISSION DIAGNOSES: 1. Left scrotal abscess. 2. Stage III sacral decubitus ulcer. 3. Leukocytosis. 4. Paraplegia. DIAGNOSES AT DISCHARGE: 1. Left scrotal abscess status post bedside incision and drainage. 2. Klebsiella pneumoniae urinary tract infection. 3. Hypertension. 4. 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 5. Stage III left sacral decubitus ulcer. 6. Hypertension. DISCHARGE MEDICATIONS: 1. Amlodipine 10 mg p.o. q.a.m. 2. Colace 100 mg b.i.d. 3. Valium 5 mg p.o. 4 times per day. 4. Culturelle 1 tablet daily. 5. Levofloxacin 500 p.o. daily. 6. Clindamycin 300 p.o. 3 times per day. PRESENTING COMPLAIN: Abscess on the left testicle. HISTORY OF PRESENTING COMPLAINT: Mr. Hilliard is a 63-year-old, gentleman who is paraplegic and bed-bound, was seen by his [facility] nurse, who found that Mr. Hilliard had some ulceration and oozing around the left scrotum. There was a concern for Cecy gangrene, so he was brought into the emergency room, where he was evaluated and admitted for perineal abscess. HOSPITAL COURSE: Mr. Hilliard was admitted to the medical floor, was started on IV antibiotics. Both surgery and Urology were consulted, he was seen. A decision was made by Dr. Watt to do a bedside at I D. Unfortunately, there was no sample sent for culture. The patient's urine culture came back positive for Klebsiella pneumoniae, which we think was also implicated with the abscess formation in the left scrotum. During the hospital course, Mr. Hilliard continued to improve. He was also evaluated by Wound Care. The chronic left gluteal ulcer was evaluated by both Surgery and Wound care, recommendations were given. Today, Mr. Hilliard referred to be doing well. Denies any new complaints. He has been afebrile. Vitals are stable. We think he is stable for discharge. He is going to follow up with Dr. Watt and Dr. Diamond. He is going to be on a total of 10 days of antibiotics for the scrotal abscess and he will follow up with Dr. Watt on that. All the discharge instructions have been discussed with Mr. Hilliard and he voiced understanding. At the time of the discharge, his vitals: Blood pressure was 147/78, pulse of 83, respirations 14, temperature is 96.7 degrees. His physical exam for most part was unremarkable, except paraplegia with hypotonicity, and also the left scrotal area did have mildly erythema and induration around the surgical incision, which looked clean. TIME SPENT FOR DISCHARGE: 33 minutes. cc: MD Titus Martins MD Sergey S. Ananyev, MD
== END 2019-01-17 16:04 | disposition home health service (06) | DRG 853 ==
LOC: SUPCPDRO → ED 09:47 → SUATTDRO 16:54 → 4N 16:54
PROVIDERS: ATTEND Internal Medicine